=== PATIENT | female | born 1940 | race Caucasian/White ===

== ENCOUNTER 2023-04-11 03:38 | Emergency (ER) | payer MEDICARE, OTHER ==
[2023-04-11] MEDS ORDERED: Morphine 4 MG/ML VIAL ONE (04:39)
[2023-04-11] MEDS ORDERED: Ondansetron PF 4 MG/2 ML Vial ONE (04:39)
[2023-04-11 05:13] LABS: #Basophils 0.1 thou/uL (0.0-0.2); #Eosinphils 0.2 thou/uL (0.0-0.7); #Monocytes 2.1 thou/uL (0.11-0.59); #Neutrophils 12.4 thou/uL (1.40-6.50); %Basophils 0.4 % (0.0-1.0); %Eosinophils 1.2 % (0.0-10.0); %Monocytes 11.5 % (0.0-10.0); %Neutrophils 69.2 % (42.0-75.0); Hematocrit 28.2 % (36.0-47.0); Hemoglobin 8.9 g/dL (12.0-16.0); Mean Corpuscular HGB CONC 31.6 g/dL (32.0-36.0); Mean Corpuscular Volume 88.7 fl (78.0-98.0); Mean Platelet Volume 10.6 fL (7.4-10.4); Platelet Count 603 10x3/uL (130-400); RBC Distribution Width 15.7 % (11.5-14.5); Red Blood Cell (RBC) Count 3.18 mill/uL (4.20-5.40)
[2023-04-11 05:19] LABS: PTT 38.3 sec (22.9-36.1); Prothrombin Time 32.1 sec (12.0-14.7)
[2023-04-11 05:34] LABS: Troponin I 0.023 ng/mL (< 0.028)
[2023-04-11] MEDS ORDERED: Cefepime 2 GM VIAL ONE (05:38)
[2023-04-11] MEDS ORDERED: Linezolid 600 MG in Premix Bag 1 BAG IVPB SCH ×2 (06:15→09:00)
[2023-04-11 06:24] LABS: ALT (SGPT) 11 U/L (8-55); AST (SGOT) 30 U/L (5-34); Albumin 3.6 g/dL (3.4-4.8); Alkaline Phosphatase 85 U/L (40-110); Anion Gap 20 mmol/L (10-20); BUN (Urea Nitrogen) 38 mg/dL (9.8-20.1); Bilirubin, Total 0.4 mg/dL (0.2-1.2); CK (CPK) 286 U/L (29-168); Calc. Creatinine Clearance 0 mL/min (70-130); Calcium 9.6 mg/dL (7.8-10.44); Carbon Dioxide 24 mmol/L (23-31); Chloride 94 mmol/L (98-107); Estimated GFR 41; Globulin 4.2 g/dL (2.4-3.5); Glucose 106 mg/dL (83-110); Potassium 3.3 mmol/L (3.5-5.1); Protein, Total 7.8 g/dL (5.8-8.1); Sodium 135 mmol/L (136-145)
[2023-04-11] MEDS ORDERED: Acetaminophen 650 MG Suppository PR PRN (07:40)
[2023-04-11] MEDS ORDERED: Ondansetron PF 4 MG/2 ML Vial IVP PRN ×2 (07:40→07:48)
[2023-04-11] MEDS ORDERED: Acetaminophen 325 MG TAB PO PRN ×2 (07:40→07:48)
[2023-04-11] MEDS ORDERED: Sodium Chloride 0.9% 1,000 ML IV SCH (07:45)
[2023-04-11] MEDS ORDERED: Ondansetron ODT 4 MG TAB PO PRN (07:48)
[2023-04-11] MEDS ORDERED: Potassium Chloride 20 MEQ in Premix Bag 1 BAG IVPB SCH (08:00)
[2023-04-11] MEDS ORDERED: Iopamidol-370 76% 500 ML MDV (1 ML CHARGE) ONE (14:48)
[2023-04-11] MEDS ORDERED: Cefepime 2 GM in Sodium Chloride 0.9% 100 ML IVPB SCH (20:00)
== END 2023-04-11 12:50 | disposition left against medical advice (07) ==
LOC: ERS 03:38 → UNDOADMIN 07:38 → ERHOLD 07:38 → UNDODISIN 09:50
DX: A41.9 Sepsis, unspecified organism (principal); I70.222 Atherosclerosis of native arteries of extremities with rest pain, left leg; I70.262 Atherosclerosis of native arteries of extremities with gangrene, left leg; E11.51 Type 2 diabetes mellitus with diabetic peripheral angiopathy without gangrene; I10 Essential (primary) hypertension; E03.9 Hypothyroidism, unspecified; Z79.899 Other long term (current) drug therapy; Z79.82 Long term (current) use of aspirin
CPT/HCPCS: 73630; 75635; 80053; 82550; 83605; 84484; 85025; 85610; 85730; 87040; 87077; 87149 ×2; 87186; 93923; 96365; 96366; 96367; 96375; 99285; J2020; 36415; J0692; J2270; J2405; Q9967